=== PATIENT | female | born 1970 | race Caucasian/White ===

== ENCOUNTER → 2017-02-17 | Outpatient (CLI) | payer BC ==
--- NOTE | 2017-02-17 12:26 | RAD ---
Lumbar spine, 3 views, 02/17/2017: History: Left hip. The lumbar vertebral heights and intervertebral disc spaces are well-maintained. There are mild scattered marginal spurs. There are mild sclerotic changes involving facet joints in the lower lumbar spine. The paraspinous soft tissues are unremarkable. IMPRESSION: 1. Mild scattered degenerative changes. 2. No acute bony abnormality is detected.
--- NOTE | 2017-02-17 12:28 | RAD ---
Pelvis with left hip, 3 views, 02/17/2017: History: Left hip pain No fracture or destructive bony lesion is seen. There is mild narrowing of the left hip joint with only minimal marginal spurring. The periarticular soft tissues are unremarkable. IMPRESSION: 1. Mild degenerative change at the left hip joint. 2. No acute bony abnormality is detected.
== END | disposition home or self-care (01) ==
LOC: DXRAD 11:22
PROVIDERS: ATTEND Nurse Practitioner Family
DX: M47.896 Other spondylosis, lumbar region (principal); M16.12 Unilateral primary osteoarthritis, left hip
CPT/HCPCS: 72100; 73502